=== PATIENT | male | born 1925 | race Caucasian/White ===

== ENCOUNTER 2017-01-11 12:54 | Inpatient (IN) | payer MEDICARE, OTHER ==
[2017-01-11] MEDS ORDERED: Sodium Chloride 0.9% 10 ML Syringe FLUSH PRN (13:14)
[2017-01-11] MEDS ORDERED: Sodium Chloride 0.9% 1,000 ML IV SCH (13:15)
--- NOTE | 2017-01-11 13:50 | CR ---
Chest: Portable view of the chest was obtained. Comparison: Prior chest x-ray of 11/30/15. Diffuse increased lung markings are seen which appear stable from previous exam. Heart size within normal limits for portable technique. Tortuous thoracic aorta is seen. Bony structures are grossly intact. Impression: 1. Chest x-ray felt to be fairly stable from prior exam. Nothing acute is definitely seen. Diagnostic code #2
--- NOTE | 2017-01-11 14:54 | EDM.PDOC ---
ED HPI GENERAL MEDICAL PROBLEM - General Chief Complaint: Neuro Symptoms/Deficits Stated Complaint: DIZZY AND WEAK Time Seen by Provider: 01/11/17 13:03 Source of Information: Reports: Patient, Family, RN Notes Reviewed - History of Present Illness INITIAL COMMENTS - FREE TEXT/NARRATIVE: 89-year-old male comes in with nonspecific dizziness. States he does feel more weak and more dizzy when standing or walking. This started this morning a few hours ago. He does have history of diabetes and hypertension. He is on multiple meds for all of that. He is been eating and drinking satisfactorily. He does not check his blood sugars but states they are "always okay" no chest pain. Mild shortness of breath especially with exertion but he also states that he is not "able to ambulate much" due to multiple areas of arthritis. He does deny vertigo. The dizziness is more of a lightheadedness. No fever chills vomiting or diarrhea. - Related Data Allergies Allergy/AdvReac Type Severity Reaction Status Date / Time No Known Allergies Allergy Verified 01/11/17 13:05 Home Meds: Home Meds Aspirin [Halfprin] 81 mg PO DAILY 01/22/15 [History] Benazepril [Lotensin] 40 mg PO DAILY 01/22/15 [History] Cholecalciferol (Vitamin D3) [Vitamin D3] 2,000 unit PO DAILY 01/22/15 [History] Fish Oil/[place]-3 Fatty Acids [Fish Oil 1,000 MG] 1,000 mg PO DAILY 01/22/15 [ History] Glucosamine 1 tab PO DAILY 01/22/15 [History] Hydrochlorothiazide 25 mg PO DAILY 01/22/15 [History] Insulin Glarg,Human.Rec.Analog [Lantus] 10 units SQ BEDTIME 01/22/15 [History] Pravastatin [Pravachol] 20 mg PO DAILY 01/22/15 [History] glipiZIDE [Glucotrol XL] 5 mg PO DAILY 01/22/15 [History] metFORMIN [Glucophage] 1,000 mg PO BID 01/22/15 [History] Carvedilol [Coreg] 6.25 mg PO DAILY 11/30/15 [History] Meloxicam 15 mg PO DAILY 01/11/17 [History] Past Medical History HEENT History: Reports: Cataract, Impaired Vision Other HEENT History: Wears glasses Cardiovascular History: Reports: Hypertension Respiratory History: Reports: Pneumonia, Recurrent Other Respiratory History: Lung congestion - "Industry Segment Specialist cleaned out lungs". Uses oxygen PRN at home - only about 1-2 days a week when under 90% for an hour or two. Other Gastrointestinal History: Heartburn, abdominal hernia Genitourinary History: Reports: Renal Calculus Endocrine/Metabolic History: Reports: Diabetes, Type II - Past Surgical History HEENT Surgical History: Reports: Adenoidectomy, Cataract Surgery Musculoskeletal Surgical History: Reports: Knee Replacement Social & Family History - Family History Family Medical History: Noncontributory Respiratory: Reports: TB Oncologic: Reports: Pancreatic - Tobacco Use Smoking Status *Q: Former Smoker Years of Tobacco use: 24 Packs/Tins Daily: 1 Used Tobacco, but Quit: No Month Tobacco Last Used: 49 yr Second Hand Smoke Exposure: No - Caffeine Use Caffeine Use: Reports: Coffee - Recreational Drug Use Recreational Drug Use: No - Living Situation & Occupation Living situation: Reports: , with Spouse Occupation: Retired ED ROS GENERAL - Review of Systems Review Of Systems: See Below Constitutional: Denies: Fever, Chills, Diaphoresis HEENT: Denies: Throat Pain Respiratory: Reports: Shortness of Breath Cardiovascular: Reports: Lightheadedness. Denies: Chest Pain (Exertional) GI/Abdominal: Denies: Abdominal Pain, Nausea, Vomiting : Reports: Frequency (Chronic) Musculoskeletal: Reports: Back Pain, Joint Pain (Multiple areas of chronic joint discomfort) Skin: Reports: No Symptoms Neurological: Reports: Dizziness, Weakness (Mild generalized). Denies: Trouble Speaking ED EXAM, NEURO - Physical Exam Exam: See Below General Appearance: Alert, No Apparent Distress Eye Exam: Bilateral Eye: PERRL Throat/Mouth: Normal Inspection, Normal Oropharynx Head Exam: Atraumatic. No: Facial Swelling Neck: Supple, Full Range of Motion Respiratory/Chest: No Respiratory Distress, Lungs Clear, Normal Breath Sounds Cardiovascular: Tachycardia GI/Abdominal: Soft, Non-Tender. No: Guarding Neurological: Alert, No Motor/Sensory Deficits, Oriented x 3 Extremities: Normal Inspection. No: Pedal Edema, Leg Pain, Increased Warmth, Redness Skin Exam: Warm, Dry, Normal Color EKG INTERPRETATION EKG Date: 01/11/17 Rhythm: Other (Unknown rhythm, some irregularity noted, narrow complex, P waves are either absent or mostly hidden) P-Wave: Absent QRS: RBBB (Q waves inferior leads) Course - Vital Signs Last Recorded V/S: Last Vital Signs Temp 97.0 F 01/11/17 12:55 Pulse 104 H 01/11/17 12:55 Resp 18 01/11/17 12:55 BP 103/82 01/11/17 12:55 Pulse Ox 94 L 01/11/17 12:55 - Orders/Labs/Meds Orders: Active Orders 24 hr Category Date Time Status EKG 12 Lead [EKG Documentation Completion] [RC] STAT Care 01/11/17 13:13 Active Peripheral IV Care [RC] . DIRECTED Care 01/11/17 13:14 Active Sodium Chloride 0.9% [Normal Saline] 1,000 ml Med 01/11/17 13:15 Active IV ASDIRECTED Sodium Chloride 0.9% [Saline Flush] Med 01/11/17 13:14 Active 10 ml FLUSH ASDIRECTED PRN Peripheral IV Insertion Adult [OM.PC] Stat Oth 01/11/17 13:13 Ordered Medication Orders Sodium Chloride (Normal Saline) 1,000 mls @ 75 mls/hr IV ASDIRECTED TYRONE Sodium Chloride (Saline Flush) 10 ml FLUSH ASDIRECTED PRN PRN Reason: Keep Vein Open Labs: Laboratory Tests 01/11/17 01/11/17 Range/Units 13:15 13:15 WBC 12.05 H (4.23-9.07) K/mm3 RBC 4.84 (4.63-6.08) M/mm3 Hgb 15.4 (13.7-17.5) gm/L Hct 46.5 (40.1-51.0) % MCV 96.1 H (79.0-92.2) fl MCH 31.8 (25.7-32.2) pg MCHC 33.1 (32.2-35.5) g/dl RDW Std Deviation 46.3 H (35.1-43.9) fL Plt Count 167 (163-337) K/mm3 MPV 9.4 (9.4-12.3) fl Neut % (Auto) 62.2 (34.0-67.9) % Lymph % (Auto) 27.3 (21.8-53.1) % [place] % (Auto) 7.7 (5.3-12.2) % Eos % (Auto) 2.2 (0.8-7.0) Baso % (Auto) 0.4 (0.1-1.2) % Neut # (Auto) 7.49 H (1.78-5.38) K/mm3 Lymph # (Auto) 3.29 (1.32-3.57) K/mm3 [place] # (Auto) 0.93 H (0.30-0.82) K/mm3 Eos # (Auto) 0.27 (0.04-0.54) K/mm3 Baso # (Auto) 0.05 (0.01-0.08) K/mm3 Sodium 138 (136-145) mEq/L Potassium 4.6 (3.5-5.1) mEq/L Chloride 101 (98-107) mEq/L Carbon Dioxide 29 (21-32) mEq/L Anion Gap 12.6 (5-15) BUN 32 H (7-18) mg/dL Creatinine 1.7 H (0.7-1.3) mg/dL Est Cr Clr Drug Dosing 28.50 mL/min Estimated GFR (MDRD) 38 (>60) mL/min BUN/Creatinine Ratio 18.8 H (14-18) Glucose 192 H (83-115) mg/dL Calcium 9.1 (8.5-10.1) mg/dL Total Bilirubin 0.4 (0.2-1.0) mg/dL AST 35 (15-37) U/L ALT 30 (16-63) U/L Alkaline Phosphatase 86 (46-116) U/L Troponin I < 0.017 (0.00-0.056) ng/mL NT-Pro-B Natriuret Pep 824 H (0-450) pg/mL Total Protein 7.2 (6.4-8.2) g/dl Albumin 3.2 L (3.4-5.0) g/dl Globulin 4.0 gm/dL Albumin/Globulin Ratio 0.8 L (1-2) Meds: Medications Generic Name Dose Route Start Last Admin Trade Name Freq PRN Reason Stop Dose Admin Sodium Chloride 1,000 mls @ 75 mls/hr 01/11/17 13:15 Normal Saline IV ASDIRECTED TYRONE Sodium Chloride 10 ml 01/11/17 13:14 Saline Flush FLUSH ASDIRECTED PRN Keep Vein Open - Re-Assessments/Exams Free Text/Narrative Re-Assessment/Exam: 01/11/17 14:30. Blood pressure has continued to run low with most readings in the mid 80s systolic. That is lying flat on the cot. He feels okay with that but does get dizzy when sitting or standing. He would be a tremendous fall risk to go home. He is on 3 different meds as noted for hypertension. Coreg probably needs to be stopped. I have discussed this with Dr. Lutz our Hospitalist. We will admit him to ICU, stop the Coreg for further monitoring and treatment. Departure - Departure Time of Disposition: 14:25 Disposition: Admitted As Inpatient 68 Condition: Fair Clinical Impression: Hypotension, Renal insufficiency Arrhythmia Qualifiers: Arrhythmia type: unspecified cardiac arrhythmia Qualified Code(s): I49.9 - Cardiac arrhythmia, unspecified - Discharge Information Referrals: Arik Martinez MD [Primary Care Provider] - Forms: ED Department Discharge ED Communication - Discussed Case With (1) Discussed Case With (1): Admitting Provider (Dr. Lutz, decision to admit at about 14:25) - My Orders Last 24 Hours: My Active Orders 01/11/17 13:13 EKG 12 Lead [EKG Documentation Completion] [RC] STAT Peripheral IV Insertion Adult [OM.PC] Stat 01/11/17 13:14 Peripheral IV Care [RC] . DIRECTED Sodium Chloride 0.9% [Saline Flush] 10 ml FLUSH ASDIRECTED PRN 01/11/17 13:15 Sodium Chloride 0.9% [Normal Saline] 1,000 ml IV ASDIRECTED - Assessment/Plan Last 24 Hours: My Active Orders 01/11/17 13:13 EKG 12 Lead [EKG Documentation Completion] [RC] STAT Peripheral IV Insertion Adult [OM.PC] Stat 01/11/17 13:14 Peripheral IV Care [RC] . DIRECTED Sodium Chloride 0.9% [Saline Flush] 10 ml FLUSH ASDIRECTED PRN 01/11/17 13:15 Sodium Chloride 0.9% [Normal Saline] 1,000 ml IV ASDIRECTED
--- NOTE | 2017-01-11 18:37 | PCM.HP ---
H&P History of Present Illness - General Date of Service: 01/11/17 Source of Information: Patient, Family, Provider History Limitations: Reports: No Limitations - History of Present Illness Initial Comments - Free Text/Narative: 89 year old male who presented with generalized weakness and dizziness, has multiple risk factors including diabetes and hypertension for CAD. He has no known history of a conduction disorder; the initial EKG documented an atrial rhythm. He will be admitted to the ICU, Coreg will be held. Onset of Symptoms: Reports: Unknown/Unsure Duration of Symptoms: Reports: Day(s):, Getting Worse Location: Reports: Generalized Severity: Moderate Improves with: Reports: None Worsens with: Reports: Medication Context: Reports: Activity/Exercise Associated Symptoms: Reports: Weakness - Related Data Allergies/Adverse Reactions: Allergies Allergy/AdvReac Type Severity Reaction Status Date / Time No Known Allergies Allergy Verified 01/11/17 13:05 Home Medications: Home Meds Aspirin [Halfprin] 81 mg PO DAILY 01/22/15 [History] Benazepril [Lotensin] 40 mg PO DAILY 01/22/15 [History] Cholecalciferol (Vitamin D3) [Vitamin D3] 2,000 unit PO DAILY 01/22/15 [History] Fish Oil/[place]-3 Fatty Acids [Fish Oil 1,000 MG] 1,000 mg PO DAILY 01/22/15 [ History] Glucosamine 1 tab PO DAILY 01/22/15 [History] Hydrochlorothiazide 25 mg PO DAILY 01/22/15 [History] Insulin Glarg,Human.Rec.Analog [Lantus] 10 units SQ BEDTIME 01/22/15 [History] Pravastatin [Pravachol] 20 mg PO DAILY 01/22/15 [History] glipiZIDE [Glucotrol XL] 5 mg PO DAILY 01/22/15 [History] metFORMIN [Glucophage] 1,000 mg PO BID 01/22/15 [History] Meloxicam 15 mg PO DAILY 01/11/17 [History] Past Medical History HEENT History: Reports: Cataract, Impaired Vision Other HEENT History: Wears glasses Cardiovascular History: Reports: Hypertension Respiratory History: Reports: Pneumonia, Recurrent Other Respiratory History: Lung congestion - "Blood Tester cleaned out lungs". Uses oxygen PRN at home - only about 1-2 days a week when under 90% for an hour or two. Other Gastrointestinal History: Heartburn, abdominal hernia Genitourinary History: Reports: Renal Calculus Endocrine/Metabolic History: Reports: Diabetes, Type II - Past Surgical History HEENT Surgical History: Reports: Adenoidectomy, Cataract Surgery Musculoskeletal Surgical History: Reports: Knee Replacement Social & Family History - Family History Family Medical History: Noncontributory Respiratory: Reports: TB Oncologic: Reports: Pancreatic - Tobacco Use Smoking Status *Q: Former Smoker Years of Tobacco use: 24 Packs/Tins Daily: 1 Used Tobacco, but Quit: No Month Tobacco Last Used: 51 yr Second Hand Smoke Exposure: No - Caffeine Use Caffeine Use: Reports: Coffee - Recreational Drug Use Recreational Drug Use: No - Living Situation & Occupation Living situation: Reports: , with Spouse Occupation: Retired H&P Review of Systems - Review of Systems: Review Of Systems: See Below General: Reports: Weakness HEENT: Reports: No Symptoms Pulmonary: Reports: No Symptoms Cardiovascular: Reports: Lightheadedness Gastrointestinal: Reports: No Symptoms Genitourinary: Reports: No Symptoms Musculoskeletal: Reports: No Symptoms Skin: Reports: No Symptoms Psychiatric: Reports: No Symptoms Neurological: Reports: Dizziness, Weakness Hematologic/Lymphatic: Reports: No Symptoms Immunologic: Reports: No Symptoms Exam - Exam Exam: See Below - Vital Signs Vital Signs: Last Vital Signs Temp 36.1 C 01/11/17 12:55 Pulse 104 H 01/11/17 12:55 Resp 18 01/11/17 12:55 BP 103/82 01/11/17 12:55 Pulse Ox 94 L 01/11/17 12:55 Weight: 83.915 kg - Exam Quality Assessment: Supplemental Oxygen, DVT Prophylaxis General: Alert, Oriented, Cooperative HEENT: Conjunctiva Clear, EOMI, Hearing Intact, Nares Patent, Normal Nasal Septum, Pupils Equal, Pupils Reactive, PERRLA Neck: Supple, Trachea Midline Lungs: Normal Respiratory Effort Cardiovascular: Regular Rate, Regular Rhythm GI/Abdominal Exam: Normal Bowel Sounds, Soft, Non-Tender, No Organomegaly, No Distention (Male) Exam: Deferred Rectal (Males) Exam: Deferred Back Exam: Normal Inspection Extremities: Normal Inspection Skin: Warm, Dry, Intact Neurological: Cranial Nerves Intact, Normal Gait, Normal Speech Neuro Extensive - Mental Status: Alert, Oriented x3, Normal Mood/Affect, Normal Cognition, Memory Intact Neuro Extensive - Motor, Sensory, Reflexes: CN II-XII Intact Psychiatric: Alert, Normal Affect, Normal Mood - Patient Data Result Diagrams: 01/12/17 05:02 01/12/17 05:02 *Q Meaningful Use (ADM) - VTE *Q VTE Criteria *Q: - Stroke *Q Stroke Criteria *Q: - AMI *Q AMI Criteria *Q: - Problem List (1) Arrhythmia SNOMED Code(s): 426251372 ICD Code: I49.9 - CARDIAC ARRHYTHMIA, UNSPECIFIED Status: Acute Current Visit: Yes Qualifiers: Arrhythmia type: unspecified cardiac arrhythmia Qualified Code(s): I49.9 - Cardiac arrhythmia, unspecified (2) Hypotension SNOMED Code(s): 82689100 ICD Code: I95.9 - HYPOTENSION, UNSPECIFIED Status: Acute Current Visit: Yes (3) Renal insufficiency SNOMED Code(s): 889160021 ICD Code: N28.9 - DISORDER OF KIDNEY AND URETER, UNSPECIFIED Status: Acute Current Visit: Yes (4) Arrhythmia, ventricular SNOMED Code(s): 57279263 ICD Code: I49.9 - CARDIAC ARRHYTHMIA, UNSPECIFIED Status: Acute Current Visit: No (5) Chest pain SNOMED Code(s): 94330992 ICD Code: R07.9 - CHEST PAIN, UNSPECIFIED Status: Acute Current Visit: No Qualifiers: Chest pain type: unspecified Qualified Code(s): R07.9 - Chest pain, unspecified Problem List Initiated/Reviewed/Updated: Yes Orders Last 24hrs: Medication Orders Sodium Chloride (Normal Saline) 1,000 mls @ 75 mls/hr IV ASDIRECTED TYRONE Last Admin: 01/11/17 16:20 Dose: 75 mls/hr Sodium Chloride (Saline Flush) 10 ml FLUSH ASDIRECTED PRN PRN Reason: Keep Vein Open Last Admin: 01/11/17 16:20 Dose: 10 ml Assessment/Plan Comment:: Impression: Atrial arrhythmia, symptomatic with dizziness Hypertension HLD Diabetes Mellitus type 2 Acute on chronic renal insufficiency, stage III on admission Plan: Hold BB Correct electrolytes Daily labs Home meds CW/PT/OT DVT/GI prophylaxis.
[2017-01-11] MEDS ORDERED: hydrALAZINE 20 MG/ML SDV IVPUSH PRN (18:42)
[2017-01-11] MEDS ORDERED: 50% Dextrose in Water 50 ML Syringe IVPUSH PRN (18:44)
[2017-01-11] MEDS ORDERED: Lactated Ringers 1,000 ML IV SCH (18:45)
[2017-01-11] MEDS ORDERED: Temazepam 15 MG Cap PO PRN (20:13)
[2017-01-11] MEDS ORDERED: Haloperidol Lactate 5 MG/ML SDV ONE (20:22)
[2017-01-11] MEDS ORDERED: Insulin Detemir 100 Units/ML 3 ML Pen SUBCUT SCH (21:00)
[2017-01-11] MEDS: metFORMIN 500 MG Tab PO SCH (21:35)
[2017-01-11] MEDS: Insulin Aspart 100 Units/ML 3 ML Pen SUBCUT SCH (21:37)
[2017-01-12] MEDS: Insulin Aspart 100 Units/ML 3 ML Pen SUBCUT SCH (06:56)
[2017-01-12] MEDS ORDERED: glipiZIDE 5 MG Tab.ER PO SCH (09:00)
[2017-01-12] MEDS ORDERED: Non-Formulary Medication 1 Each (Meloxicam 15 MG) PO SCH (09:00)
[2017-01-12] MEDS ORDERED: Simvastatin 10 MG Tab PO SCH (09:00)
[2017-01-12] MEDS: metFORMIN 500 MG Tab PO SCH (09:03)
[2017-01-12 09:48] VITALS: BP 105/83
--- NOTE | 2017-01-12 11:34 | PCM.DCSUM1 ---
Discharge Summary - Hospital Course Free Text/Narrative:: 89 year old male monitored overnight in the ICU, BB held. He had a documented atrial arrhythmia on admission, and a follow up ECG at [place] documented Sinus Rhythm. Home meds were adjusted, the Coreg was held. He will be discharged off of the BB on a Holter monitor for 48 hours. A follow up with his PCP is anticipated within 7-10 days. He is to refrain from driving and monitor himself during the assistant sales center manager, returning to the ED if he becomes lightheaded, dizzy or develops palpitations. Primary Dx Symptomatic Atrial Arrhythmia, unspecified HTN DM type II Condition Stable Meds Unchanged however, hold Coreg Instructions Do not drive for 48 hours Diet 2000 ADA, heart healthy Appt PCP 7-10 days, unable to call at [place] on a Saturday - Discharge Data Discharge Date: 01/12/17 Discharge Disposition: Home, Self-Care 01 Condition: Good - Discharge Diagnosis/Problem(s) (1) Arrhythmia SNOMED Code(s): 676463213 ICD Code: I49.9 - CARDIAC ARRHYTHMIA, UNSPECIFIED Status: Acute Current Visit: Yes Qualifiers: Arrhythmia type: unspecified cardiac arrhythmia Qualified Code(s): I49.9 - Cardiac arrhythmia, unspecified (2) Hypotension SNOMED Code(s): 15784457 ICD Code: I95.9 - HYPOTENSION, UNSPECIFIED Status: Acute Current Visit: Yes (3) Renal insufficiency SNOMED Code(s): 489258932 ICD Code: N28.9 - DISORDER OF KIDNEY AND URETER, UNSPECIFIED Status: Acute Current Visit: Yes (4) Arrhythmia, ventricular SNOMED Code(s): 79387272 ICD Code: I49.9 - CARDIAC ARRHYTHMIA, UNSPECIFIED Status: Acute Current Visit: No (5) Chest pain SNOMED Code(s): 97300032 ICD Code: R07.9 - CHEST PAIN, UNSPECIFIED Status: Acute Current Visit: No Qualifiers: Chest pain type: unspecified Qualified Code(s): R07.9 - Chest pain, unspecified - Patient Instructions Diet: Heart Healthy Diet, Diabetic Diet Activity: As Tolerated Activity, Other: Increase activity gradually, may drive starting Saturday. Driving: Do Not Drive Showering/Bathing: May Shower (ok to drive on Saturday) Showering/Bathing, Other: Hold Coreg until seen by Dr Hodges and Holter monitor is reviewed. Notify Provider of: Nausea and/or Vomiting (Come to ED for dizzines or palptations) - Discharge Plan Home Medications: Home Meds Aspirin [Halfprin] 81 mg PO DAILY 01/22/15 [History] Benazepril [Lotensin] 40 mg PO DAILY 01/22/15 [History] Cholecalciferol (Vitamin D3) [Vitamin D3] 2,000 unit PO DAILY 01/22/15 [History] Fish Oil/[place]-3 Fatty Acids [Fish Oil 1,000 MG] 1,000 mg PO DAILY 01/22/15 [ History] Glucosamine 1 tab PO DAILY 01/22/15 [History] Hydrochlorothiazide 25 mg PO DAILY 01/22/15 [History] Insulin Glarg,Human.Rec.Analog [Lantus] 10 units SQ BEDTIME 01/22/15 [History] Pravastatin [Pravachol] 20 mg PO DAILY 01/22/15 [History] glipiZIDE [Glucotrol XL] 5 mg PO DAILY 01/22/15 [History] metFORMIN [Glucophage] 1,000 mg PO BID 01/22/15 [History] Meloxicam 15 mg PO DAILY 01/11/17 [History] Forms: ED Department Discharge Referrals: Arik Martinez MD [Primary Care Provider] - - Discharge Summary/Plan Comment DC Time >30 min.: No - General Info Date of Service: 01/11/17 Functional Status: Reports: Tolerating Diet, Ambulating, Urinating - Review of Systems General: Reports: No Symptoms HEENT: Reports: No Symptoms Pulmonary: Reports: No Symptoms Cardiovascular: Reports: No Symptoms Gastrointestinal: Reports: No Symptoms Genitourinary: Reports: No Symptoms Musculoskeletal: Reports: No Symptoms Skin: Reports: No Symptoms Neurological: Reports: No Symptoms Psychiatric: Reports: No Symptoms - Patient Data Vitals - Most Recent: Last Vital Signs Temp 36.8 C 01/12/17 08:00 Pulse 88 01/12/17 08:00 Resp 20 01/12/17 08:00 BP 105/83 01/12/17 08:00 Pulse Ox 93 L 01/12/17 08:00 Weight - Most Recent: 90.9 kg I&O - Last 24 hours: Intake & Output 01/11/17 01/12/17 01/12/17 22:59 06:59 14:59 Intake Total 800 580 Output Total 250 125 Balance 550 455 Lab Results - Last 24 hrs: Laboratory Results - last 24 hr 01/11/17 01/12/17 01/12/17 Range/Units 19:13 05:02 05:02 WBC 8.65 (4.23-9.07) K/mm3 RBC 4.75 (4.63-6.08) M/mm3 Hgb 15.2 (13.7-17.5) gm/L Hct 46.1 (40.1-51.0) % MCV 97.1 H (79.0-92.2) fl MCH 32.0 (25.7-32.2) pg MCHC 33.0 (32.2-35.5) g/dl RDW Std Deviation 48.1 H (35.1-43.9) fL Plt Count 150 L (163-337) K/mm3 MPV 9.8 (9.4-12.3) fl Neut % (Auto) 50.3 (34.0-67.9) % Lymph % (Auto) 36.6 (21.8-53.1) % [place] % (Auto) 8.3 (5.3-12.2) % Eos % (Auto) 4.0 (0.8-7.0) Baso % (Auto) 0.7 (0.1-1.2) % Neut # (Auto) 4.34 (1.78-5.38) K/mm3 Lymph # (Auto) 3.17 (1.32-3.57) K/mm3 [place] # (Auto) 0.72 (0.30-0.82) K/mm3 Eos # (Auto) 0.35 (0.04-0.54) K/mm3 Baso # (Auto) 0.06 (0.01-0.08) K/mm3 Sodium 139 (136-145) mEq/L Potassium 4.1 (3.5-5.1) mEq/L Chloride 105 (98-107) mEq/L Carbon Dioxide 28 (21-32) mEq/L Anion Gap 10.1 (5-15) BUN 35 H (7-18) mg/dL Creatinine 1.4 H (0.7-1.3) mg/dL Est Cr Clr Drug Dosing 34.61 mL/min Estimated GFR (MDRD) 48 (>60) mL/min BUN/Creatinine Ratio 25.0 H (14-18) Glucose 69 L (83-115) mg/dL POC Glucose 158 H (83-110) mg/dL Calcium 9.1 (8.5-10.1) mg/dL Magnesium (1.8-2.4) mg/dl Troponin I 0.039 (0.00-0.056) ng/mL C-Reactive Protein < 0.2 (<1.0) mg/dL 01/12/17 01/12/17 01/12/17 Range/Units 05:02 05:02 06:44 WBC (4.23-9.07) K/mm3 RBC (4.63-6.08) M/mm3 Hgb (13.7-17.5) gm/L Hct (40.1-51.0) % MCV (79.0-92.2) fl MCH (25.7-32.2) pg MCHC (32.2-35.5) g/dl RDW Std Deviation (35.1-43.9) fL Plt Count (163-337) K/mm3 MPV (9.4-12.3) fl Neut % (Auto) (34.0-67.9) % Lymph % (Auto) (21.8-53.1) % [place] % (Auto) (5.3-12.2) % Eos % (Auto) (0.8-7.0) Baso % (Auto) (0.1-1.2) % Neut # (Auto) (1.78-5.38) K/mm3 Lymph # (Auto) (1.32-3.57) K/mm3 [place] # (Auto) (0.30-0.82) K/mm3 Eos # (Auto) (0.04-0.54) K/mm3 Baso # (Auto) (0.01-0.08) K/mm3 Sodium (136-145) mEq/L Potassium (3.5-5.1) mEq/L Chloride (98-107) mEq/L Carbon Dioxide (21-32) mEq/L Anion Gap (5-15) BUN (7-18) mg/dL Creatinine (0.7-1.3) mg/dL Est Cr Clr Drug Dosing mL/min Estimated GFR (MDRD) (>60) mL/min BUN/Creatinine Ratio (14-18) Glucose (83-115) mg/dL POC Glucose 68 L 71 L (83-110) mg/dL Calcium (8.5-10.1) mg/dL Magnesium 1.6 L (1.8-2.4) mg/dl Troponin I (0.00-0.056) ng/mL C-Reactive Protein (<1.0) mg/dL Med Orders - Current: Current Medications Benazepril HCl (Lotensin) 20 mg PO BID [facility] Dextrose/Water (Dextrose 50% In Water) 50 ml IVPUSH ASDIRECTED PRN PRN Reason: Hypoglycemia Glipizide (Glucotrol Xl) 5 mg PO DAILY [facility] Last Admin: 01/12/17 09:03 Dose: 5 mg Hydralazine HCl (Apresoline) 20 mg IVPUSH Q6H PRN PRN Reason: Hypertension Insulin Aspart (Novolog) 0 unit SUBCUT QIDACANDBED [facility] PRN Reason: Protocol Last Admin: 01/12/17 06:56 Dose: Not Given Insulin Detemir (Levemir) 5 unit SUBCUT BEDTIME [facility] Last Admin: 01/11/17 21:33 Dose: 5 units Metformin HCl (Glucophage) 1,000 mg PO BID [facility] Last Admin: 01/12/17 09:03 Dose: 1,000 mg Non-Formulary Medication (Meloxicam) 15 mg PO DAILY [facility] Simvastatin (Zocor) 10 mg PO DAILY [facility] Last Admin: 01/12/17 09:04 Dose: 10 mg Sodium Chloride (Saline Flush) 10 ml FLUSH ASDIRECTED PRN PRN Reason: Keep Vein Open Last Admin: 01/11/17 16:20 Dose: 10 ml Temazepam (Restoril) 15 mg PO BEDTIME PRN PRN Reason: Sleep Last Admin: 01/11/17 21:35 Dose: 15 mg Discontinued Medications Haloperidol Lactate (Haldol) Confirm Administered Dose 5 mg .ROUTE .STK-MED ONE Stop: 01/11/17 20:23 Last Admin: 01/11/17 20:55 Dose: Not Given Sodium Chloride (Normal Saline) 1,000 mls @ 75 mls/hr IV ASDIRECTED [facility] Last Admin: 01/11/17 16:20 Dose: 75 mls/hr Lactated Ringer's (Ringers, Lactated) 1,000 mls @ 75 mls/hr IV ASDIRECTED TYRONE Stop: 01/12/17 00:44 Last Admin: 01/11/17 18:58 Dose: 75 mls/hr - Exam Quality Assessment: Reports: DVT Prophylaxis General: Reports: Alert, Oriented, Cooperative, No Acute Distress HEENT: Reports: Pupils Equal, Pupils Reactive, EOMI Neck: Reports: Supple, Trachea Midline, No JVD Lungs: Reports: Clear to Auscultation, Normal Respiratory Effort Cardiovascular: Reports: Regular Rate, Regular Rhythm GI/Abdominal Exam: Normal Bowel Sounds, Soft, Non-Tender, No Organomegaly, No Distention (Male) Exam: Deferred Rectal (Males) Exam: Deferred Back Exam: Reports: Normal Inspection Extremities: Normal Inspection, Normal Range of Motion, Non-Tender, No Pedal Edema, Normal Capillary Refill Skin: Reports: Warm Neurological: Reports: No New Focal Deficit, Normal Gait, Normal Speech Psy/Mental Status: Reports: Alert, Normal Affect, Normal Mood *Q Meaningful Use (DIS) - VTE *Q VTE Criteria *Q: - Stroke *Q Stroke Criteria *Q: - AMI *Q AMI Criteria *Q:
== END 2017-01-12 12:13 | disposition home or self-care (01) | DRG 309 ==
LOC: JD.ED 12:54 → UNDOADMIN 18:34 → JD.ICU 18:34 → UNDODISIN 01-12 12:13
PROVIDERS: ADMIT Internal Medicine Cardiovascular Disease; ATTEND Internal Medicine Cardiovascular Disease
DX: I49.9 Cardiac arrhythmia, unspecified (principal); I95.9 Hypotension, unspecified; N28.9 Disorder of kidney and ureter, unspecified; Z87.891 Personal history of nicotine dependence; Z79.4 Long term (current) use of insulin; R07.9 Chest pain, unspecified; Z79.84 Long term (current) use of oral hypoglycemic drugs; Z79.82 Long term (current) use of aspirin; Z79.899 Other long term (current) drug therapy; E11.9 Type 2 diabetes mellitus without complications; I10 Essential (primary) hypertension; H54.7 Unspecified visual loss; Z96.659 Presence of unspecified artificial knee joint
CPT/HCPCS: 36415; 71010; 80053; 83880; 84484; 85025; 93005; 96360; 96361; 99285; J7040; J7050; 80048; 82962; 83735; 86140; 93010; 93225; 93226; A9270-GY; J1815-GY; J7120

== ENCOUNTER 2017-07-15 10:09 | Emergency (ER) | payer MEDICARE, OTHER ==
[2017-07-15] MEDS ORDERED: Sodium Chloride 0.9% 10 ML Syringe FLUSH PRN (10:42)
--- NOTE | 2017-07-15 10:54 | EDM.PDOC ---
<EmmaSharon - Last Filed: 07/15/17 10:41> ED HPI GENERAL MEDICAL PROBLEM - General Chief Complaint: Respiratory Problem Stated Complaint: Short of breath, L sided chest pain Time Seen by Provider: 07/15/17 10:20 Source of Information: Reports: Patient, Family () History Limitations: Reports: No Limitations - History of Present Illness Onset: Gradual Duration: Day(s):, Getting Worse Location: Reports: Chest Quality: Reports: Ache, Sharp Severity: Moderate Improves with: Reports: Rest Worsens with: Reports: Breathing, Movement Associated Symptoms: Reports: cough w sputum, Fever/Chills, Shortness of Breath Left Chest Pain Score (Numeric/FACES): 7 - Related Data Allergies Allergy/AdvReac Type Severity Reaction Status Date / Time No Known Allergies Allergy Verified 07/15/17 10:17 Home Meds: Home Meds Aspirin [Halfprin] 81 mg PO DAILY 01/22/15 [History] Benazepril [Lotensin] 40 mg PO DAILY 01/22/15 [History] Cholecalciferol (Vitamin D3) [Vitamin D3] 2,000 unit PO DAILY 01/22/15 [History] Fish Oil/[place]-3 Fatty Acids [Fish Oil 1,000 MG] 1,000 mg PO DAILY 01/22/15 [ History] Glucosamine 1 tab PO DAILY 01/22/15 [History] Hydrochlorothiazide 12.5 mg PO DAILY 01/22/15 [History] Insulin Glarg,Human.Rec.Analog [Lantus] 10 units SQ BEDTIME 01/22/15 [History] Pravastatin [Pravachol] 20 mg PO DAILY 01/22/15 [History] glipiZIDE [Glucotrol XL] 10 mg PO DAILY 01/22/15 [History] metFORMIN [Glucophage] 1,000 mg PO BID 01/22/15 [History] Meloxicam 15 mg PO DAILY 01/11/17 [History] Carvedilol [Coreg] 12.5 mg PO BID 07/15/17 [History] Cholecalciferol (Vitamin D3) [Vitamin D] 5,000 unit PO DAILY 07/15/17 [History] Past Medical History HEENT History: Reports: Cataract, Impaired Vision Other HEENT History: Wears glasses Cardiovascular History: Reports: Hypertension Respiratory History: Reports: Pneumonia, Recurrent Other Respiratory History: Lung congestion - "Front Counter Attendant cleaned out lungs". . Other Gastrointestinal History: Heartburn, abdominal hernia Genitourinary History: Reports: Renal Calculus Endocrine/Metabolic History: Reports: Diabetes, Type II - Past Surgical History HEENT Surgical History: Reports: Adenoidectomy, Cataract Surgery Musculoskeletal Surgical History: Reports: Knee Replacement Social & Family History - Family History Family Medical History: Noncontributory Respiratory: Reports: TB Oncologic: Reports: Pancreatic - Tobacco Use Smoking Status *Q: Former Smoker Years of Tobacco use: 24 Packs/Tins Daily: 1 Used Tobacco, but Quit: Yes Month/Year Tobacco Last Used: 40 years ago - Caffeine Use Caffeine Use: Reports: Coffee - Recreational Drug Use Recreational Drug Use: No - Living Situation & Occupation Living situation: Reports: , with Spouse Occupation: Retired Course - Vital Signs Last Recorded V/S: Last Vital Signs Temp 98.4 F 07/15/17 10:17 Pulse 55 L 07/15/17 12:10 Resp 20 07/15/17 12:10 BP 151/75 H 07/15/17 12:10 Pulse Ox 94 L 07/15/17 12:10 - Orders/Labs/Meds Orders: Active Orders 24 hr Category Date Time Status Cardiac Monitoring [RC] . DIRECTED Care 07/15/17 10:42 Active EKG Documentation Completion [RC] STAT Care 07/15/17 10:34 Active Oxygen Therapy [RC] PRN Care 07/15/17 10:42 Active Peripheral IV Care [RC] . DIRECTED Care 07/15/17 10:43 Active Chest 2V [CR] Stat Exams 07/15/17 10:43 Taken Sodium Chloride 0.9% [Saline Flush] Med 07/15/17 10:42 Active 10 ml FLUSH ASDIRECTED PRN Peripheral IV Insertion Adult [OM.PC] Stat Oth 07/15/17 10:42 Ordered Medication Orders Sodium Chloride (Saline Flush) 10 ml FLUSH ASDIRECTED PRN PRN Reason: Keep Vein Open Last Admin: 07/15/17 10:45 Dose: 10 ml Labs: Laboratory Tests 07/15/17 07/15/17 07/15/17 Range/Units 10:25 10:25 10:25 WBC 10.89 H (4.23-9.07) K/mm3 RBC 5.01 (4.63-6.08) M/mm3 Hgb 15.8 (13.7-17.5) gm/L Hct 48.5 (40.1-51.0) % MCV 96.8 H (79.0-92.2) fl MCH 31.5 (25.7-32.2) pg MCHC 32.6 (32.2-35.5) g/dl RDW Std Deviation 49.3 H (35.1-43.9) fL Plt Count 176 (163-337) K/mm3 MPV 9.6 (9.4-12.3) fl Neut % (Auto) 57.4 (34.0-67.9) % Lymph % (Auto) 32.0 (21.8-53.1) % [place] % (Auto) 7.0 (5.3-12.2) % Eos % (Auto) 2.8 (0.8-7.0) Baso % (Auto) 0.6 (0.1-1.2) % Neut # (Auto) 6.24 H (1.78-5.38) K/mm3 Lymph # (Auto) 3.49 (1.32-3.57) K/mm3 [place] # (Auto) 0.76 (0.30-0.82) K/mm3 Eos # (Auto) 0.31 (0.04-0.54) K/mm3 Baso # (Auto) 0.07 (0.01-0.08) K/mm3 Sodium 138 (136-145) mEq/L Potassium 4.6 (3.5-5.1) mEq/L Chloride 102 (98-107) mEq/L Carbon Dioxide 28 (21-32) mEq/L Anion Gap 12.6 (5-15) BUN 33 H (7-18) mg/dL Creatinine 1.4 H (0.7-1.3) mg/dL Est Cr Clr Drug Dosing 35.77 mL/min Estimated GFR (MDRD) 48 (>60) mL/min BUN/Creatinine Ratio 23.6 H (14-18) Glucose 129 H (83-115) mg/dL Calcium 9.6 (8.5-10.1) mg/dL Total Bilirubin 0.6 (0.2-1.0) mg/dL AST 33 (15-37) U/L ALT 31 (16-63) U/L Alkaline Phosphatase 107 (46-116) U/L Troponin I < 0.017 (0.00-0.056) ng/mL NT-Pro-B Natriuret Pep 1688 H (0-450) pg/mL Total Protein 7.8 (6.4-8.2) g/dl Albumin 3.7 (3.4-5.0) g/dl Globulin 4.1 gm/dL Albumin/Globulin Ratio 0.9 L (1-2) Meds: Medications Generic Name Dose Route Start Last Admin Trade Name Freq PRN Reason Stop Dose Admin Sodium Chloride 10 ml 07/15/17 10:42 07/15/17 10:45 Saline Flush FLUSH 10 ml ASDIRECTED PRN Administration Keep Vein Open Departure - Departure Disposition: Home, Self-Care 01 Clinical Impression: Dyspnea on effort - Discharge Information Referrals: Arik Martinez MD [Primary Care Provider] - Forms: ED Department Discharge Additional Instructions: Take your medication as prescribed but take 2 of the hydrochlorothiazide for 3 days. Follow up with Dr Hodges. You may need an ultrasound of your heart. Please return if you are worse. - My Orders Last 24 Hours: My Active Orders 07/15/17 10:34 EKG Documentation Completion [RC] STAT 07/15/17 10:42 Cardiac Monitoring [RC] . DIRECTED Oxygen Therapy [RC] PRN Sodium Chloride 0.9% [Saline Flush] 10 ml FLUSH ASDIRECTED PRN Peripheral IV Insertion Adult [OM.PC] Stat 07/15/17 10:43 Peripheral IV Care [RC] . DIRECTED Chest 2V [CR] Stat - Assessment/Plan Last 24 Hours: My Active Orders 07/15/17 10:34 EKG Documentation Completion [RC] STAT 07/15/17 10:42 Cardiac Monitoring [RC] . DIRECTED Oxygen Therapy [RC] PRN Sodium Chloride 0.9% [Saline Flush] 10 ml FLUSH ASDIRECTED PRN Peripheral IV Insertion Adult [OM.PC] Stat 07/15/17 10:43 Peripheral IV Care [RC] . DIRECTED Chest 2V [CR] Stat <Terence Frederick - Last Filed: 07/15/17 12:56> ED HPI GENERAL MEDICAL PROBLEM - History of Present Illness INITIAL COMMENTS - FREE TEXT/NARRATIVE: The patient presents with increased shortness of breath for a few days. He also has some left sided chest pain. He has a cough that is slightly productive. He has no fever or chills. He has mild swelling in the legs. ED ROS GENERAL - Review of Systems Review Of Systems: See Below Constitutional: Reports: No Symptoms HEENT: Reports: No Symptoms Respiratory: Reports: Shortness of Breath Cardiovascular: Reports: Chest Pain Endocrine: Reports: No Symptoms GI/Abdominal: Reports: No Symptoms : Reports: No Symptoms Musculoskeletal: Reports: No Symptoms ED EXAM, GENERAL - Physical Exam Exam: See Below Exam Limited By: No Limitations General Appearance: Alert, No Apparent Distress Ears: Normal External Exam Nose: Normal Inspection Head: Atraumatic, Normocephalic Neck: Normal Inspection Respiratory/Chest: No Respiratory Distress, Decreased Breath Sounds, Rales Cardiovascular: Regular Rate, Rhythm, No Edema, No Murmur GI/Abdominal: Soft, Non-Tender, No Organomegaly, No Mass Back Exam: Normal Inspection Extremities: Normal Inspection EKG INTERPRETATION EKG Date: 07/15/17 Time: 10:25 Rhythm: NSR Rate (Beats/Min): 65 [place]: Normal P-Wave: Present QRS: RBBB ST-T: Normal QT: Normal AR/PQ Interval: 1st degree HB EKG Interpretation Comments: LVH Course - Re-Assessments/Exams Free Text/Narrative Re-Assessment/Exam: 07/15/17 12:50 I ordered an IV saline lock, EKG, CXR and labs. His EKG shows a NSR with no acute changes. His CXR shows nothing acute. His WBC is slightly elevated at 10.89. His creatinine is slightly elevated at 1.4. His glucose is elevated at 129. His troponin is negative. His BNP was 1688. He has some extra fluid. I will have him take extra HCTZ. Departure - Departure Time of Disposition: 13:00 Condition: Good
[2017-07-15 13:30] VITALS: BP 164/74
--- NOTE | 2017-07-15 15:47 | CR ---
Chest: Two views of the chest were obtained. Comparison: Prior chest x-ray of 01/11/17. Heart size is normal. Upper mediastinum is normal. Scoliosis is noted within the spine. Lung markings are diffusely increased which appear chronic. No acute parenchymal change is seen. Degenerative change is noted within the spine. Impression: 1. Stable findings as described above. Nothing acute is suspected. Diagnostic code #2
== END 2017-07-15 13:00 | disposition home or self-care (01) ==
LOC: JD.ED 10:09 → SUPCPDRO 10:09 → JD.ED 13:00
DX: R06.09 Other forms of dyspnea (principal); I10 Essential (primary) hypertension; E11.9 Type 2 diabetes mellitus without complications; Z79.899 Other long term (current) drug therapy; Z87.891 Personal history of nicotine dependence; Z79.82 Long term (current) use of aspirin
CPT/HCPCS: 36415; 71046; 80053; 83880; 84484; 85025; 93005; 99285; J7050; 93010; 99283-25